=== PATIENT | female | born 1975 | race Caucasian/White ===

== ENCOUNTER 2020-06-08 12:54 | Emergency (ER) | payer OTHER | END 2020-06-08 14:02 | disposition home or self-care (01) | LOC: JVIRT 12:54 | DX: Z03.818 Encounter for observation for suspected exposure to other biological agents ruled out (principal) | CPT/HCPCS: C9803; G2012-GT; U0003 ==

== ENCOUNTER 2020-06-13 13:28 | Emergency (ER) | payer OTHER | END 2020-06-13 14:03 | disposition home or self-care (01) | LOC: JVIRT 13:28 | DX: Z11.59 Encounter for screening for other viral diseases (principal) | CPT/HCPCS: C9803; Q3014-GT; U0003 ==

== ENCOUNTER 2020-07-23 10:14 | Emergency (ER) | payer OTHER | END 2020-07-23 10:44 | disposition home or self-care (01) | LOC: JVIRT 10:14 | DX: Z11.52 Encounter for screening for COVID-19 (principal) | CPT/HCPCS: C9803; G2012-GT; U0003 ==